=== PATIENT | female | born 1945 | race Caucasian/White ===

== ENCOUNTER 2016-08-07 07:39 | Inpatient (IN) | payer OTHER ==
[2016-07-19 14:59] VITALS: BMI 23.0
--- NOTE | 2016-07-19 15:42 | PAT Medication Instructions ---
Service Date Jul 19, 2016. Current Home Medication List Amlodipine (Norvasc), 7.5 MG PO QAM Ascorbic Acid (Vitamin C), 500 MG PO QPM B-Complex Vitamins (Vitamin B Complex), 1 TAB PO QAM Doxycycline Monohydrate (Monodox), 100 MG PO QAM Levothyroxine Sodium (Synthroid), 25 MCG PO QAM Lorazepam (Lorazepam), 1 MG PO QID PRN for Anxiety Multiple Vitamins W/ Minerals (Hair/Skin/Nails/Biotin), 2 TAB PO QPM Naproxen (Naprosyn), 500 MG PO BID Pantoprazole (Pantoprazole Sodium), 40 MG PO QAM Pediatric Multiple Vitamin W/ (Gummi Bear Multivitamin/M), 2 TABS PO QPM Vortioxetine HBr (Trintellix), 5 MG PO QAM [Vitamin D], 2 TAB PO QPM Medication Instructions For Your Scheduled Surgery - Check with surgeon for instructions: Naproxen (Naprosyn), 500 MG PO BID - Hold the following medications the morning of surgery: B-Complex Vitamins (Vitamin B Complex), 1 TAB PO QAM - Take the following medications the morning of surgery with a sip of water: Pantoprazole (Pantoprazole Sodium), 40 MG PO QAM Lorazepam (Lorazepam), 1 MG PO QID PRN for Anxiety Levothyroxine Sodium (Synthroid), 25 MCG PO QAM Amlodipine (Norvasc), 7.5 MG PO QAM Vortioxetine HBr (Trintellix), 5 MG PO QAM Doxycycline Monohydrate (Monodox), 100 MG PO QAM - Take the following medications as scheduled the night before surgery: [Vitamin D], 2 TAB PO QPM Pediatric Multiple Vitamin W/ (Gummi Bear Multivitamin/M), 2 TABS PO QPM Multiple Vitamins W/ Minerals (Hair/Skin/Nails/Biotin), 2 TAB PO QPM Lorazepam (Lorazepam), 1 MG PO QID PRN for Anxiety Ascorbic Acid (Vitamin C), 500 MG PO QPM If you have any questions please call us at [phone] (Ally Morales PA-C) or [phone] or [phone]
[2016-07-19 16:07] LABS: BASO % 0.2 %; BASO ABS # 0.01 K/uL (0-0.2); COMPLETE YES; EOS % 2.7 %; HEMATOCRIT 44.5 % (37-47); LYMPH % 37.9 %; MEAN CELL VOLUME 83.6 fL (80-100); MEAN CORPUSCULAR HEMOGLOBIN 28.4 pg (25-34); MEAN CORPUSCULAR HGB CONC 33.9 g/dl (32-36); MEAN PLATELET VOLUME 9.4 fL (7.4-10.4); MONO % 5.7 %; NEUT % 53.5 %; PLATELET COUNT 244 K/uL (130-400); RED BLOOD COUNT 5.32 M/uL (4.2-5.4); WHITE BLOOD COUNT 4.75 K/uL (4.8-10.8)
[2016-07-19 16:12] LABS: URINE APPEARANCE CLEAR (CLEAR); URINE BILIRUBIN NEG (NEG); URINE COLOR YELLOW; URINE EPITHELIAL CELL AUTO 0-5 /lpf (0-5); URINE NITRITE NEG (NEG); URINE PH 6.5 (4.5-7.5); URINE SPECIFIC GRAVITY 1.011 (1.000-1.030); UROBILINOGEN NEG (NEG); ZZUR CULT IF INDIC CLEAN CATCH NO
[2016-07-19 16:14] LABS: PROTHROMBIN TIME (PATIENT) 10.4 SECONDS (9.0-12.0)
[2016-07-19 16:21] LABS: MANUAL MICROSCOPIC REQUIRED? NO; REVIEW REQ? NO
[2016-07-19 16:25] LABS: BUN/CREATININE RATIO 27.6 (10-20); CREATININE 0.67 mg/dl (0.60-1.20); POTASSIUM 3.4 mmol/L (3.5-5.1)
[2016-07-20 06:06] LABS: ESTIMATED AVERAGE GLUCOSE 105 mg/dl; HA1C FLAG Normal (Normal)
--- NOTE | 2016-08-06 21:27 | HISTORY & PHYSICAL EXAMINATION ---
DATE OF ADMISSION: 08/07/2016 CHIEF COMPLAINT: Chronic left shoulder pain. HISTORY OF PRESENT ILLNESS: This is a 71-year-old female patient of Dr. Carrillo, complaining of chronic left shoulder pain longstanding, now progressively getting worse. The patient has been diagnosed with end-stage osteoarthritis and she has failed conservative treatment. The patient wishes to proceed with an elective left total shoulder arthroplasty. PAST MEDICAL HISTORY: Hypertension, irregular heartbeat, anxiety, Meniere disease, hypothyroidism, abnormal bleeding or bruising, osteoarthritis, neck problems, acid reflux, obesity. 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 SOCIAL HISTORY: Nonsmoker, nondrinker. PAST SURGICAL HISTORY: Appendectomy, tonsillectomy, D\T\C x4, hernia repair, shunt in her left ear, uterine ablation, left hand mass excision. FAMILY HISTORY: Noncontributory. REVIEW OF SYSTEMS: The patient complains of chronic left shoulder pain. Otherwise, denies any shortness of breath, chest pain, nausea, vomiting or any other joint complaints. MEDICATIONS: Include Synthroid 0.25 mg daily, Norvasc 2.5 mg 3 daily, Protonix 40 mg daily, lorazepam q.i.d. p.r.n., a multivitamin daily, calcium daily, vitamin C daily, Naprosyn as needed, B complex daily, doxycycline 100 mg q.a.m. ALLERGIES: INCLUDE SULFA, PENICILLIN, PROCARDIA, INHALED ANESTHESIA INCLUDING ETHRANE AND CLARITHROMYCIN. PHYSICAL EXAMINATION: GENERAL: Well-developed, well-nourished 71-year-old female in no acute distress. She is alert and oriented x3 and pleasant. HEENT: Normocephalic, atraumatic. Extraocular motions are intact. Pupils are equal and reactive to light. HEART: Regular rate and rhythm, no murmurs appreciated. LUNGS: Clear. ABDOMEN: Soft, nontender, bowel sounds present. EXTREMITIES: Left shoulder reveals full range of motion with pain. She has crepitation with passive range of motion. She has 4/5 strength globally. NEUROLOGIC: Neurovascularly, she is intact in her left upper extremity. DIAGNOSES: Left shoulder end-stage osteoarthritis with a history of hypertension, irregular heartbeat, anxiety, Meniere disease, hypothyroidism, abnormal bleeding or bruising, osteoarthritis, neck problems, acid reflux, obesity, kidney stones and jaundice secondary to Ethrane anesthesia. PLAN: The patient was advised of her diagnosis. Indications, risks, benefits, and postop course have all been reviewed. The patient wishes to proceed with a left total shoulder arthroplasty with possible rotator cuff repair. Necessary consent forms, preoperative testing and clearances will be obtained.
[~2016-08-07] VITALS: Ht 160 cm; Wt 61.2 kg
[2016-08-07] VITALS (8 sets, daily range): BP systolic 104–146; BP diastolic 65–80; PULSE 54–65; TEMP 36.1–36.7; O2SAT 96–100; Ht 160 cm; Wt 61.2 kg
[2016-08-07] MEDS: TRANEXAMIC ACID INJ 1,000 MG in SODIUM CHLORIDE 0.9% 100ML 100 ML IV SCH ×2 (06:30→09:44)
[~2016-08-07 07:39] MED LIST: ACETAMINOPHEN 500 MG TAB PO SCH; AMLO2.5T PO; ASCO500C5 PO; ATV1HP PO; B-COTAB18 PO; DEXAMETHASONE 4 MG TAB PO SCH; DOXY100C76 PO; FAMOTIDINE 20 MG TAB PO SCH; GABAPENTIN 300 MG CAP PO SCH; LACTATED RINGER'S 1000ML 1,000 ML IV SCH; LACTATED RINGER'S 1000ML IV SCH; LEVO25TA PO; LIDOCAINE/EPINEPHRINE 2% 1:200,000 20 ML SDV ONE; METOCLOPRAMIDE HCL 10 MG TAB PO SCH; MULT-859 PO; NAPR-1169 PO; PEDICHW34 PO; PRT40 PO; ROPIVACAINE 0.5% 5 MG/ML 30 ML VIAL ONE; VANCOMYCIN INJ 900 MG in SODIUM CHLORIDE 0.9% 250ML 250 ML IV SCH; VITAMIN D PO; VORT1TAB PO
[2016-08-07] MEDS ORDERED: ROCURONIUM BROMIDE 10 MG/ML 5 ML VIAL ONE (07:48)
[2016-08-07] MEDS ORDERED: GLYCOPYRROLATE INJ 0.2 MG/ML VIAL ONE (07:48)
[2016-08-07] MEDS ORDERED: PROPOFOL IV EMULSION 10 MG/ML 20 ML VIAL IV ONE (07:48)
[2016-08-07] MEDS ORDERED: FENTANYL CITRATE INJ 50 MCG/1 ML 2 ML VIAL ONE (07:48)
[2016-08-07] MEDS ORDERED: MIDAZOLAM HCL 1 MG/ML 2ML VIAL ONE ×2 (07:48→09:46)
[2016-08-07] MEDS ORDERED: LIDOCAINE HCL 2% 2 ML VIAL (20MG/ML) ONE ×2 (07:48→09:46)
[2016-08-07] MEDS ORDERED: NEOSTIGMINE METHYLSULFATE 5 MG/5 ML SYR ONE (07:48)
[2016-08-07] MEDS ORDERED: ONDANSETRON INJ 2 MG/ML 2 ML VIAL ONE ×2 (07:48→10:48)
--- NOTE | 2016-08-07 08:44 | History & Physical Bridge Note ---
H&P Re-Evaluation Bridge Note: I have examined the patient, reviewed the History & Physical and in the interval since the performance of the History & Physical I have noted the following changes of clinical significance: No changes noted
[2016-08-07] MEDS ORDERED: BACITRACIN 50000 UNIT VIAL ONE (09:27)
[2016-08-07] MEDS ORDERED: EpHEDrine SULFATE INJ 50 MG/ML AMP IV PRN (10:30)
[2016-08-07] MEDS ORDERED: LABETALOL HCL IV 5 MG/ML 20ML IV PRN (10:30)
[2016-08-07] MEDS ORDERED: MEPERIDINE HCL 25 MG/ML CARP IV PRN (10:30)
[2016-08-07] MEDS ORDERED: ATROPINE SULFATE 0.1 MG/ML 5ML SYR IV PRN (10:30)
[2016-08-07] MEDS ORDERED: ONDANSETRON INJ 2 MG/ML 2 ML VIAL IV PRN ×2 (10:30→12:30)
[2016-08-07] MEDS ORDERED: HYDROmorphone INJ 1 MG/ML SYR IV PRN (10:30)
[2016-08-07] MEDS ORDERED: EpHEDrine SULFATE 50MG/5ML SYR ONE ×2 (10:44→11:34)
[2016-08-07] MEDS ORDERED: PHENYLEPHRINE 100MCG/ML 5ML SYR ONE (10:44)
[2016-08-07] MEDS ORDERED: DEXAMETHASONE SOD INJ 4 MG/ML VIAL ONE (12:08)
[2016-08-07] MEDS ORDERED: ZOLPIDEM TARTRATE 5 MG TAB PO PRN (12:30)
[2016-08-07] MEDS ORDERED: SOD PHOSPHATE/SOD BIPHOSPHATE ENEMA 132 ML BTL PR PRN (12:30)
[2016-08-07] MEDS ORDERED: MAGNESIUM HYDROXIDE SUSP 30 ML UDC PO PRN (12:30)
[2016-08-07] MEDS ORDERED: NALOXONE HCL 0.4 MG/1 ML VIAL/CARP IV PRN (12:30)
[2016-08-07] MEDS ORDERED: METOCLOPRAMIDE HCL INJ 5 MG/ML 2 ML VIAL IV PRN (12:30)
[2016-08-07] MEDS ORDERED: BISACODYL 10 MG SUPP PR PRN (12:30)
[2016-08-07] MEDS ORDERED: LABETALOL HCL IV 5 MG/ML 20ML IV ONE (12:31)
--- NOTE | 2016-08-07 12:50 | [facility] Operative Report ---
Operative Report Operative Date Aug 07, 2016. Pre-Operative Diagnosis Left Shoulder End Stage Osteoarthritis,possible small rotator cuff tear Post-Operative Diagnosis same,biceps tenosynovitis chronic,intact rotator cuff Procedure(s) Performed left shoulder total shoulder arthroplasty and biceps tenodesis Surgeon Dr. Gallegos [facility] Social Worker Surgeon(s) Sawyer Escalona PA-C Estimated Blood Loss 50 ML Findings as above Specimens A. Left humeral head Drains 2 hemovac Anesthesia general and regional Complication(s) None Disposition Recovery Room / PACU Indications end stage djd I attest to the content of the Intraoperative Record and any orders documented therein. Any exceptions are noted below.
[2016-08-07] MEDS: FENTANYL CITRATE INJ 50 MCG/1 ML 2 ML VIAL IV PRN ×4 (12:58→13:13)
[2016-08-07] MEDS ORDERED: MoRPHine SULFATE 4 MG/ML 1 ML CARP\\VIAL IV PRN (13:30)
--- NOTE | 2016-08-07 13:38 | Anesthesiology Progress Note ---
Anesthesia Post Op Note Date & Time Aug 07, 2016 at 13:38 Vital Signs Pain Intensity: 4 Vital Signs Past 12 Hours Date Time Temp Pulse Resp B/P Pulse Ox O2 Delivery O2 Flow Rate FiO2 08/07/16 13:35 36.2 60 16 132/78 99 Nasal Cannula 2 08/07/16 13:25 36.2 61 16 133/75 99 Nasal Cannula 2 08/07/16 13:15 55 16 138/78 99 Nasal Cannula 2 08/07/16 13:05 64 16 148/84 99 Nasal Cannula 2 08/07/16 12:55 65 16 155/93 97 Mask 10 08/07/16 12:45 64 16 127/77 97 Mask 10 08/07/16 12:37 36.4 79 16 142/82 100 Mask 10 08/07/16 08:14 36.7 63 20 146/80 98 Room Air Notes Mental Status: alert / awake / arousable, participated in evaluation Pt Amnestic to Procedure: Yes Nausea / Vomiting: adequately controlled Pain: adequately controlled Airway Patency, RR, SpO2: stable & adequate BP & HR: stable & adequate Hydration State: stable & adequate Anesthetic Complications: no major complications apparent
--- NOTE | 2016-08-07 13:39 | DIAGNOSTIC IMAGING REPORT ---
LEFT SHOULDER MIN 2 VIEWS ROUTINE CLINICAL HISTORY: Post shoulder surgery postoperative evaluation COMPARISON: None. DISCUSSION: Total left shoulder arthroplasty. Good contact between prosthetic and underlying bone. Surgical drains are in position. There is no evidence for soft tissue swelling. IMPRESSION: Anatomic alignment status post left shoulder replacement Electronically signed by: Sawyer Duarte M.D. 08/07/2016 1:38 PM Dictated Date/Time: 08/07/2016 1:38 PM
[2016-08-07] MEDS: D5W AND 1/2NSS + 20MEQ KCL 1,000 ML IV SCH (16:46)
--- NOTE | 2016-08-07 17:26 | Medical Consult ---
Consultation Date of Consultation: Aug 07, 2016. Attending Physician: Brandin Gallegos M.D. Reason for Consultation: Medical management History of Present Illness This is a 71 y/o female with a history of HTN, hypothyroidism, anxiety, and GERD who presents s/p left total shoulder arthroplasty with Dr. Gallegos on for medical management. The patient reports feeling well postoperatively. She states that she has some numbness and tingling in her left arm and fingers but that sensation is starting to return. She also states that she had some mild nausea immediately after surgery; however, this has improved and she is now starting to feel hungry. The patient has not yet eaten, passed gas or had a bowel movement. Rosa catheter is in place draining clear urine. The patient denies fevers, chills, sweats, chest pain, palpitations, claudication, cough, wheezing, shortness of breath, vomiting, abdominal pain, dysuria, hematuria, urinary retention, paralysis, and weakness. Family History Myocardial infarction Stroke Social History Smoking Status: Never Smoker Smokeless Tobacco Use: No Alcohol Use: none Drug Use: none Marital Status: Housing Status: lives alone Occupation Status: retired Allergies Coded Allergies: Iodinated Diagnostic Agents (Verified Allergy, Intermediate, hives per PCP records, 08/07/16) Penicillins (Verified Allergy, Intermediate, HIVES, 08/07/16) Sulfamethoxazole w/Trimethoprim (Verified Allergy, Intermediate, HIVES, ) Enflurane (Verified Allergy, Unknown, CHEMICAL HEPATITIS WITH ANESTHESIA, 08/07/16) RXN WITH D+C PROCEDURE () Levofloxacin (Verified Allergy, Unknown, per PCP note , 08/07/16) Nifedipine (Verified Adverse Reaction, Intermediate, ARRYTHMIA, 08/07/16) Current Inpatient Medications Current Inpatient Medications Medications (Trade) Dose Ordered Sig/Grayson Route Start Time Stop Time Status Last Admin Dose Admin Acetaminophen (Tylenol Tab) 1,000 mg PREOP PO 08/07/16 06:00 08/07/16 18:00 08/07/16 08:54 1,000 MG Dexamethasone (Decadron Tab) 8 mg PREOP PO 08/07/16 06:00 08/07/16 18:00 08/07/16 08:52 8 MG Famotidine (Pepcid Tab) 20 mg PREOP PO 08/07/16 06:00 08/07/16 18:00 08/07/16 08:53 20 MG Gabapentin (Neurontin Cap) 300 mg PREOP PO 08/07/16 06:00 08/07/16 18:00 08/07/16 08:53 300 MG Metoclopramide HCl 10 mg 10 mg PREOP PO 08/07/16 06:00 08/07/16 18:00 08/07/16 08:53 10 MG Tranexamic Acid/ Sodium Chloride (Cyklokapron Inj/ Nss 100ml) 110 ml @ 660 mls/hr TODAY@06,0630 IV 08/07/16 06:00 08/07/16 18:00 08/07/16 09:44 660 MLS/HR Amlodipine Besylate (Norvasc Tab) 7.5 mg QAM PO 08/08/16 09:00 09/07/16 08:59 Levothyroxine Sodium (Synthroid Tab) 25 mcg DAILYBB PO 08/08/16 06:00 09/07/16 05:59 Lorazepam (Ativan Tab) 1 mg QID PRN PO 08/07/16 12:30 09/06/16 12:29 Multivitamins/ Minerals (Multivitamin W/ Minerals Tab) 2 tab QPM PO 08/07/16 21:00 09/06/16 20:59 Pantoprazole Sodium (Protonix Tab) 40 mg QAM PO 08/08/16 09:00 09/07/16 08:59 Ascorbic Acid (Vitamin C Tab) 500 mg QPM PO 08/07/16 21:00 09/06/16 20:59 Vitamin B Complex (Vitamin B Complex) 1 tab QAM PO 08/08/16 09:00 09/07/16 08:59 Multivitamins (Flintstones Complete Tab) 2 tab QPM PO 08/07/16 21:00 09/06/16 20:59 Miscellaneous Information (Order Awaiting Action) 1 ea QS N/A 08/07/16 16:00 09/06/16 15:59 Miscellaneous Information (Order Awaiting Action) 1 ea QS N/A 08/07/16 16:00 09/06/16 15:59 Diphenhydramine HCl (Benadryl Cap) 25 mg Q8 PRN PO 08/07/16 12:30 09/06/16 12:29 Zolpidem Tartrate (Ambien Tab) 5 mg HSZ PRN PO 08/07/16 12:30 09/06/16 12:29 Metoclopramide HCl (Reglan Inj) 10 mg Q6H PRN IV 08/07/16 12:30 09/06/16 12:29 Ondansetron HCl 4 mg 4 mg Q6H PRN IV 08/07/16 12:30 09/06/16 12:29 Potassium Chloride/Dextrose/ Sod Cl 1,000 ml @ 100 mls/hr Q10H IV 08/07/16 16:00 08/08/16 15:59 08/07/16 16:46 100 MLS/HR Vancomycin HCl/ Sodium Chloride (Vancomycin Inj/ Nss 250ml) 268 ml @ 125 mls/hr Q12H IV 08/07/16 21:00 08/07/16 23:09 Oxycodone HCl (Roxicodone Immediate Rel Tab) `1-2 TABS FOR PAIN `1 TAB... Q4H PRN PO 08/07/16 12:30 08/21/16 12:29 Oxycodone HCl (Oxycontin Tab) 10 mg Q12 PO 08/07/16 21:00 08/21/16 20:59 Acetaminophen (Tylenol Tab) 1,000 mg Q8 PO 08/07/16 22:00 09/06/16 21:59 Morphine Sulfate (MoRPHine SULFATE INJ) 2 mg Q2H PRN IV 08/07/16 12:30 08/21/16 12:29 Naloxone HCl (Narcan Inj) 0.1 mg Q2M PRN IV 08/07/16 12:30 09/06/16 12:29 Magnesium Hydroxide (Milk Of Magnesia Susp) 30 ml Q6H PRN PO 08/07/16 12:30 09/06/16 12:29 Bisacodyl (Dulcolax Supp) 10 mg DAILY PRN UT 08/07/16 12:30 09/06/16 12:29 Sodium Biphosphate/ Sodium Phosphate (Fleet Enema) 132 ml DAILY PRN UT 08/07/16 12:30 09/06/16 12:29 Morphine Sulfate (MoRPHine SULFATE INJ) 4 mg Q2H PRN IV 08/07/16 13:30 08/21/16 13:29 Review of Systems See HPI for pertinent positives and negatives. All other systems reviewed and negative. Physical Exam Date Time Temp Pulse Resp B/P Pulse Ox O2 Delivery O2 Flow Rate FiO2 08/07/16 16:33 36.1 58 17 114/70 97 Nasal Cannula 3.0 08/07/16 15:33 Nasal Cannula 2.0 08/07/16 15:18 36.2 64 17 104/67 98 Nasal Cannula 3.0 08/07/16 14:48 Nasal Cannula 08/07/16 14:30 65 18 119/68 97 Nasal Cannula 2.0 08/07/16 14:00 36.3 54 16 120/75 08/07/16 13:35 36.2 60 16 132/78 99 Nasal Cannula 2 08/07/16 13:25 36.2 61 16 133/75 99 Nasal Cannula 2 08/07/16 13:15 55 16 138/78 99 Nasal Cannula 2 08/07/16 13:05 64 16 148/84 99 Nasal Cannula 2 08/07/16 12:55 65 16 155/93 97 Mask 10 08/07/16 12:45 64 16 127/77 97 Mask 10 08/07/16 12:37 36.4 79 16 142/82 100 Mask 10 08/07/16 08:14 36.7 63 20 146/80 98 Room Air General Appearance: WD/WN, no apparent distress Head: normocephalic, atraumatic Eyes: normal inspection, PERRL, EOMI ENT: normal ENT inspection, hearing grossly normal, pharynx normal Neck: supple, no JVD, trachea midline Respiratory/Chest: lungs clear, normal breath sounds, no respiratory distress Cardiovascular: regular rate, rhythm, no gallop, no murmur Abdomen/GI: normal bowel sounds, non tender, soft Extremities/Musculoskelatal: normal inspection, no calf tenderness, no pedal edema Neurologic/Psych: alert, normal mood/affect, oriented x 3 Skin: normal color, warm/dry, no rash Assessment & Plan 71 y/o female with a history of HTN, hypothyroidism, anxiety, and GERD who presents s/p left total shoulder arthroplasty with Dr. Gallegos on 08/07 for medical management. -Pain management, DVT prophylaxis, and PT/OT as per primary team HTN--stable -Continue Norvasc 7.5 mg PO qd Hypothyroidism -Continue Synthroid 25 g PO qd Anxiety -Continue Ativan 1 mg PO QID prn anxiety GERD -Continue Protonix 40 mg PO qd Thank you for this consultation. We will continue to follow. This chart was completed in part utilizing [email or web address] Speech Voice Recognition software. Attempts were made to minimize the grammatical errors, random word insertions, pronoun errors and incomplete sentences. Any formal questions or concerns about the content, text or information contained within the body of this dictation should be directly addressed to the provider for clarification. I agree with PA assessment and plan s/p left shoulder arthoplasty VSS HTN stable Cont ativan per anxiety No further recs
[2016-08-07 17:48] LABS: BASO % 0.1 %; BASO ABS # 0.01 K/uL (0-0.2); COMPLETE YES; HEMATOCRIT 40.9 % (37-47); IG% 0.2 %; LYMPH % 6.2 %; LYMPH ABS # 0.63 K/uL (1.2-3.4); MEAN CORPUSCULAR HEMOGLOBIN 28.7 pg (25-34); MEAN CORPUSCULAR HGB CONC 34.2 g/dl (32-36); MEAN PLATELET VOLUME 8.9 fL (7.4-10.4); MONO % 0.5 %; PLATELET COUNT 206 K/uL (130-400); RED BLOOD COUNT 4.87 M/uL (4.2-5.4); WHITE BLOOD COUNT 10.22 K/uL (4.8-10.8)
[2016-08-07 18:04] LABS: BUN/CREATININE RATIO 15.2 (10-20); CALCIUM 8.2 mg/dl (8.5-10.1); CREATININE 0.84 mg/dl (0.60-1.20); POTASSIUM 3.3 mmol/L (3.5-5.1)
[2016-08-07] MEDS: LORAZEPAM 1 MG TAB PO PRN (18:35)
[2016-08-07] MEDS: CEROVITE ADV FORMULA TAB PO SCH (21:00)
[2016-08-07] MEDS: ASCORBIC ACID 500 MG TAB PO SCH (21:00)
[2016-08-07] MEDS ORDERED: VANCOMYCIN INJ 900 MG in SODIUM CHLORIDE 0.9% 250ML 250 ML IV SCH (21:00)
[2016-08-07] MEDS: FLINTSTONES COMPLETE CHEWABLE TAB PO SCH (21:00)
[2016-08-07] MEDS: OXYCODONE HCL 10 MG TABCR (OXYCONTIN) PO SCH (21:04)
[2016-08-07] MEDS: ACETAMINOPHEN 500 MG TAB PO SCH (21:05)
[2016-08-07] MEDS: OXYCODONE HCL IR 5 MG TAB (IMMEDIATE RELEASE) PO PRN (23:06)
[2016-08-08] VITALS (7 sets, daily range): BP systolic 110–134; BP diastolic 64–80; PULSE 48–60; TEMP 36.4–36.9; O2SAT 94–98
--- NOTE | 2016-08-08 00:33 | OPERATIVE REPORT ---
DATE OF OPERATION: 08/07/2016 INDICATION FOR PROCEDURE: A 71-year-old female who presents with chronic progressive pain due to osteoarthritis in her left shoulder. She was worked up with x-rays and MRI. X-rays demonstrate she has concentric wear of the glenoid. She is completely bone on bone with no articular surface. She has a type 1 acromion. The MRI demonstrates that she has some intratendinous tearing which is small, possible partial tearing or tendinopathy of the supraspinatus, but not a full thickness tear and a small area involved and chronic synovitis in the glenohumeral joint with joint effusion and a loose body. She has chronic biceps tenosynovitis. PREOPERATIVE DIAGNOSIS: End-stage osteoarthritis, left shoulder with rotator cuff tendinopathy, partial tear rotator cuff, chronic biceps tenosynovitis. POSTOPERATIVE DIAGNOSIS: Same; however, no rotator cuff tear was identified. Rotator cuff was intact. PROCEDURE: Left total shoulder arthroplasty with biceps tenodesis. SURGEON: Brandin Gallegos MD DIVE SUPERINTENDENT: Sawyer Escalona PA-C ANESTHESIA: Regional block and general. OPERATIVE PROCEDURE: The patient taken to the operating room, anesthetized with regional block and general anesthetic. She was positioned on the operating room table on a 30 degree beach chair position with a towel roll on the medial border of scapula. She was translated to left side of the bed, so her shoulder could be manipulated off the bed as necessary. Her head was placed on a foam headrest. She had protective eyewear placed. She had TEDs, SCDs and Rosa catheter placed. Her shoulder exam demonstrated that she had mild limitation of external rotation to about 40 degrees and her abduction was to 90 and her forward elevation was to 150 and she had marked [id number] crepitation. Her left shoulder was sterilely prepped and draped with ChloraPrep. An anterior deltopectoral approach was performed. A longitudinal incision was made in the deltopectoral interval. Subcutaneous bleeders were cauterized as necessary. The subcutaneous tissues were dissected down to the fascia, reflected off the fascia and the cephalic vein was dissected out and retracted laterally with the deltoid. Deltopectoral interval was developed and dissected down to the clavipectoral fascia which was divided at the lateral margin of the strap muscles and conjoined tendon and extended up to the CA ligament which was preserved. There was some minor bursitis which was resected. Rotator cuff was inspected and the rotator cuff was completely intact, subscapularis, supraspinatus, infraspinatus, teres minor. She had thickening in the bicipital groove area where she had chronic tenosynovitis of the biceps. The falciform ligament and upper 1 cm of the pectoralis was released for inferior exposure. The biceps tendon was tenodesed to the pectoralis tendon with [id number] #2 FiberWire. The proximal bicep was resected along with the tenosynovium that was chronically inflamed. The circumflex vessels were identified, dissected out and tied off with silk ties and divided laterally. The rotator interval was opened up and the joint effusion was evacuated. The rotator interval was divided laterally between the supraspinatus and subscap tendons. The muscle fibers of the inferior subscapularis were split at the level of the circumflex vessels and small cuff of subscapularis muscle fibers were kept inferiorly to protect the axillary nerve inferiorly. A Kitner elevator was used to reflect these fibers off the capsule and a blunt Hohmann retractor was placed between the axillary nerve and the capsule. The subscapularis tendon was then taken down with a transtendinous incision leaving a cuff of tissue on the lesser tuberosity for repair. A #1 Vicryl traction suture was placed into the free ends of the subscapularis tendon. The humerus was gradually externally rotated and extended to dislocate the humerus. The humeral head was completely devoid of any articular cartilage. There was a large inferior osteophyte. There were some smaller lateral osteophytes. The osteophytes were resected with an artist chisel and a rongeur. Then the axillary nerve was definitely identified and protected with the blunt Hohmann inferiorly. A Fukuda retractor was placed into the joint and the capsule was released with Fisher scissors down to the glenoid off the anterior glenoid and rotator was released down to the glenoid, so we had a 360 degree release of the subscapularis. Anterior inferior and posterior inferior capsular release with electrocautery on bone was performed with the axillary nerve protected inferiorly. A Starr elevator was also used to free up the capsule. After releases were completed and the humeral head was re-exposed with extension and external rotation, an oscillating saw was used to make an anatomic femoral head cut. Head was measured for a 46 mm diameter component. I used the Tornier Aequalis Ascend Flex total shoulder arthroplasty system with an Affiniti Cortiloc glenoid component. The humerus was then retracted posterior to the glenoid. We had full exposure of the glenoid with glenoid retractors. Central drill hole was made into the glenoid. The size 44 glenoid was chosen as the appropriate size. The reamer was used and some acetabular cysts were curetted out. Then the central drill hole was widened. The peg guide for the peripheral pegs was inserted and the drill was used to make the peripheral peg holes. The glenoid was copiously irrigated and free of all debris. We did remove the loose body that was noted on preoperative x-rays from the joint. At this point, with the glenoid fully exposed, we irrigated copiously with antibiotic solution with bacitracin and dried the glenoid and then packed the drill holes with epinephrine soaked tampons. Then the Palacos G cement was vacuum mixed and then the glenoid was cemented with the central peg being pressfit and the peripheral peg hole was cemented and back of the glenoid was cemented. It was impacted in position with a tight pressfit and held until the cement cured. All excess cement was cleared. After further irrigation, the humerus was exposed with extension and external rotation. This centering awl was used followed by broaches up to a size 3, which had appropriate fit and fill. I used a standard offset humeral head 46 mm diameter and 17 mm height. The trial reduction demonstrated good range of motion, good stability, and appropriate soft tissue tension. The trial was removed. Three drill holes were made into the hard bone in the bicipital groove, so 3 transosseous sutures could be placed around the lesser tuberosity to repair the subscapularis, #5 FiberWire sutures were placed. After further irrigation, the final component was assembled which was the 3A standard Ascend Flex stem to the 46 x 17 mm low offset head. After the final component was assembled, it was inserted into the humerus with a tight pressfit. The humeral component was then reduced to the glenoid. After further irrigation with antibiotic solution with bacitracin, the subscapularis was repaired with the #5 FiberWire sutures using Ez-Erick suture technique. Then the lateral soft tissue repair was performed with [id number] #2 FiberWire and rotator was closed with interrupted #2 FiberWire. The pectoralis was repaired with interrupted #2 FiberWire placing sutures through the biceps as well to reinforce the tenodesis. Postop, range of motion at this point was 120 degrees without any tension on the repair and forward flexion, abduction at 90, external rotation to 30. The wound was again irrigated. Two drains were brought out laterally. Then the deltopectoral interval was closed with [id number] #1 Vicryl sutures. The subcutaneous tissues were closed with interrupted 2-0 Vicryl. Skin was closed with kyle. Sterile dressings were applied and the patient tolerated the procedure well. ALEX Timmons was my pharmacist assistant. He functioned as pharmacist assistant for the entire procedure. He assisted in patient positioning, prepping, draping, arm positioning, instrument management, soft tissue retraction, suture management as needed during the procedure and he performed the final subcutaneous skin closure and will participate in the postoperative care of the patient. I attest to the content of the Intraoperative Record and any orders documented therein. Any exceptions are noted below. LAUREL
[2016-08-08] MEDS: D5W AND 1/2NSS + 20MEQ KCL 1,000 ML IV SCH (01:55)
[2016-08-08] MEDS: MoRPHine SULFATE 2 MG/ML CARP IV PRN ×5 (01:55→23:55)
[2016-08-08] MEDS: OXYCODONE HCL IR 5 MG TAB (IMMEDIATE RELEASE) PO PRN ×4 (03:08→20:04)
[2016-08-08] MEDS: LORAZEPAM 1 MG TAB PO PRN ×2 (03:08→09:12)
[2016-08-08] MEDS: LEVOTHYROXINE 25 MCG TAB PO SCH (05:48)
[2016-08-08] MEDS: ACETAMINOPHEN 500 MG TAB PO SCH ×3 (05:48→22:07)
[2016-08-08 07:28] LABS: HEMATOCRIT 40.2 % (37-47); MEAN CELL VOLUME 83.8 fL (80-100); MEAN CORPUSCULAR HEMOGLOBIN 28.1 pg (25-34); MEAN CORPUSCULAR HGB CONC 33.6 g/dl (32-36); MEAN PLATELET VOLUME 9.5 fL (7.4-10.4); PLATELET COUNT 248 K/uL (130-400); WHITE BLOOD COUNT 14.16 K/uL (4.8-10.8)
[2016-08-08 08:10] LABS: BUN/CREATININE RATIO 17.9 (10-20); CALCIUM 8.4 mg/dl (8.5-10.1); CREATININE 0.71 mg/dl (0.60-1.20); POTASSIUM 4.1 mmol/L (3.5-5.1)
--- NOTE | 2016-08-08 08:24 | Orthopedic Progress Note ---
Orthopedic Progress Note Date of Service Aug 08, 2016. Subjective Post OP Day: 1 Reports: feeling well, Denies: SOB, calf pain, chest pain, light headedness, nausea / vomiting Additional Notes: Main issue is pain, she was confused on the pain med schedules and states she refused pain meds because she was unsure if she could take them. Objective N/V intact, capillary refill less than 2 sec., dressing C/D/I, A&O x3 sling in tact, fingers mobile Date Time Temp Pulse Resp B/P Pulse Ox O2 Delivery O2 Flow Rate FiO2 08/08/16 07:59 36.4 48 16 129/80 98 Room Air 08/08/16 03:14 36.8 53 16 110/64 97 Nasal Cannula 2.0 08/07/16 22:45 36.4 65 18 110/71 97 Nasal Cannula 2.0 08/07/16 20:51 36.3 62 16 128/80 96 Nasal Cannula 3.0 08/07/16 20:45 Nasal Cannula 2.0 08/07/16 17:00 36.4 59 18 114/65 100 Nasal Cannula 3.0 08/07/16 16:33 36.1 58 17 114/70 97 Nasal Cannula 3.0 08/07/16 15:33 Nasal Cannula 2.0 08/07/16 15:18 36.2 64 17 104/67 98 Nasal Cannula 3.0 08/07/16 14:48 Nasal Cannula 08/07/16 14:30 65 18 119/68 97 Nasal Cannula 2.0 08/07/16 14:00 36.3 54 16 120/75 08/07/16 13:35 36.2 60 16 132/78 99 Nasal Cannula 2 08/07/16 13:25 36.2 61 16 133/75 99 Nasal Cannula 2 08/07/16 13:15 55 16 138/78 99 Nasal Cannula 2 08/07/16 13:05 64 16 148/84 99 Nasal Cannula 2 08/07/16 12:55 65 16 155/93 97 Mask 10 08/07/16 12:45 64 16 127/77 97 Mask 10 08/07/16 12:37 36.4 79 16 142/82 100 Mask 10 Laboratory Results 24 Hours: Test 08/07/16 17:39 08/08/16 07:09 White Blood Count 10.22 K/uL Red Blood Count 4.87 M/uL Hemoglobin 14.0 g/dL 13.5 g/dL Hematocrit 40.9 % 40.2 % Mean Corpuscular Volume 84.0 fL Mean Corpuscular Hemoglobin 28.7 pg Mean Corpuscular Hemoglobin Concent 34.2 g/dl Platelet Count 206 K/uL Mean Platelet Volume 8.9 fL Neutrophils (%) (Auto) 93.0 % Lymphocytes (%) (Auto) 6.2 % Monocytes (%) (Auto) 0.5 % Eosinophils (%) (Auto) 0.0 % Basophils (%) (Auto) 0.1 % Neutrophils # (Auto) 9.51 K/uL Lymphocytes # (Auto) 0.63 K/uL Monocytes # (Auto) 0.05 K/uL Eosinophils # (Auto) 0.00 K/uL Basophils # (Auto) 0.01 K/uL Assessment & Plan Assessment: Left TSA, biceps tenodesis. Plan: PT/ OT D/C planning- [place] Appreciate medicine input. Inhouse Planning Pain Management: Oxycontin, Morphine, PO Tylenol, Oxy IR DVT Prophylaxis: TEDs, SCDs Discharge Planning Discharge Planning: custodial facility Pain Management: Oxycontin, PO Tylenol, Oxy IR Therapy: Physical Therapy, Occupational Therapy
[2016-08-08] MEDS ORDERED: MULTIVITAMIN TAB PO SCH (09:00)
[2016-08-08] MEDS ORDERED: PANTOprazole SOD 40 MG TAB PO SCH (09:00)
[2016-08-08] MEDS: VITAMIN B COMPLEX TAB PO SCH (09:00)
[2016-08-08] MEDS: PANTOprazole SOD 40 MG TAB PO SCH (09:05)
[2016-08-08] MEDS: OXYCODONE HCL 10 MG TABCR (OXYCONTIN) PO SCH ×2 (09:05→22:06)
[2016-08-08] MEDS: AMLODIPINE BESYLATE 5 MG TAB PO SCH (09:09)
--- NOTE | 2016-08-08 14:14 | Progress Note ---
Subjective Date of Service: Aug 08, 2016. Subjective Pt evaluation today including: conversation w/ patient, physical exam, lab review, conversation w/ cosmetic sales consultant, review of inpatient medication list Pain: severe left shoulder pain PO Intake: adequate patient very anxious, did not sleep, pain poorly controlled with just oral narcotics, feeling better with Morphine IV will adjust Ativan Review of Systems Musculoskeletal: + joint pain (left shoulder) Psychiatric: + anxiety, + insomnia All Other Systems: Reviewed and Negative Medications Current Inpatient Medications Medications (Trade) Dose Ordered Sig/[place] Route Start Time Stop Time Status Last Admin Dose Admin Amlodipine Besylate (Norvasc Tab) 7.5 mg QAM PO 08/08/16 09:00 09/07/16 08:59 08/08/16 09:09 7.5 MG Levothyroxine Sodium (Synthroid Tab) 25 mcg DAILYBB PO 08/08/16 06:00 09/07/16 05:59 08/08/16 05:48 25 MCG Multivitamins/ Minerals (Multivitamin W/ Minerals Tab) 2 tab QPM PO 08/07/16 21:00 09/06/16 20:59 Pantoprazole Sodium (Protonix Tab) 40 mg QAM PO 08/08/16 09:00 09/07/16 08:59 08/08/16 09:05 40 MG Ascorbic Acid (Vitamin C Tab) 500 mg QPM PO 08/07/16 21:00 09/06/16 20:59 Vitamin B Complex (Vitamin B Complex) 1 tab QAM PO 08/08/16 09:00 09/07/16 08:59 Multivitamins (Flintstones Complete Tab) 2 tab QPM PO 08/07/16 21:00 09/06/16 20:59 Miscellaneous Information (Order Awaiting Action) 1 ea QS N/A 08/07/16 16:00 09/06/16 15:59 Miscellaneous Information (Order Awaiting Action) 1 ea QS N/A 08/07/16 16:00 09/06/16 15:59 Diphenhydramine HCl (Benadryl Cap) 25 mg Q8 PRN PO 08/07/16 12:30 09/06/16 12:29 Zolpidem Tartrate (Ambien Tab) 5 mg HSZ PRN PO 08/07/16 12:30 09/06/16 12:29 Metoclopramide HCl (Reglan Inj) 10 mg Q6H PRN IV 08/07/16 12:30 09/06/16 12:29 Ondansetron HCl (Zofran Inj) 4 mg Q6H PRN IV 08/07/16 12:30 09/06/16 12:29 Oxycodone HCl (Roxicodone Immediate Rel Tab) `1-2 TABS FOR PAIN `1 TAB... Q4H PRN PO 08/07/16 12:30 08/21/16 12:29 08/08/16 12:13 10 MG Oxycodone HCl (Oxycontin Tab) 10 mg Q12 PO 08/07/16 21:00 08/21/16 20:59 08/08/16 09:05 10 MG Acetaminophen (Tylenol Tab) 1,000 mg Q8 PO 08/07/16 22:00 09/06/16 21:59 08/08/16 05:48 1,000 MG Morphine Sulfate (MoRPHine SULFATE INJ) 2 mg Q2H PRN IV 08/07/16 12:30 08/21/16 12:29 08/08/16 13:03 2 MG Naloxone HCl (Narcan Inj) 0.1 mg Q2M PRN IV 08/07/16 12:30 09/06/16 12:29 Magnesium Hydroxide (Milk Of Magnesia Susp) 30 ml Q6H PRN PO 08/07/16 12:30 09/06/16 12:29 Bisacodyl (Dulcolax Supp) 10 mg DAILY PRN SC 08/07/16 12:30 09/06/16 12:29 Sodium Biphosphate/ Sodium Phosphate (Fleet Enema) 132 ml DAILY PRN SC 08/07/16 12:30 09/06/16 12:29 Morphine Sulfate (MoRPHine SULFATE INJ) 4 mg Q2H PRN IV 08/07/16 13:30 08/21/16 13:29 Lorazepam (Ativan Tab) 1 mg BID@0800,1600 PO 08/08/16 16:00 09/07/16 15:59 Lorazepam (Ativan Tab) 1 mg HSZ PO 08/08/16 22:00 09/07/16 21:59 Lorazepam (Ativan Tab) 0.5 mg HSZ PRN PO 08/08/16 22:00 09/07/16 21:59 Objective Vital Signs Date Time Temp Pulse Resp B/P Pulse Ox O2 Delivery O2 Flow Rate FiO2 08/08/16 11:30 36.4 60 19 134/75 96 Room Air 08/08/16 09:07 56 111/72 08/08/16 07:59 36.4 48 16 129/80 98 Room Air 08/08/16 07:45 98 Room Air 08/08/16 03:14 36.8 53 16 110/64 97 Nasal Cannula 2.0 08/07/16 22:45 36.4 65 18 110/71 97 Nasal Cannula 2.0 08/07/16 20:51 36.3 62 16 128/80 96 Nasal Cannula 3.0 08/07/16 20:45 Nasal Cannula 2.0 08/07/16 17:00 36.4 59 18 114/65 100 Nasal Cannula 3.0 08/07/16 16:33 36.1 58 17 114/70 97 Nasal Cannula 3.0 08/07/16 15:33 Nasal Cannula 2.0 08/07/16 15:18 36.2 64 17 104/67 98 Nasal Cannula 3.0 08/07/16 14:48 Nasal Cannula 08/07/16 14:30 65 18 119/68 97 Nasal Cannula 2.0 Physical Exam General Appearance: WD/WN, no apparent distress Eyes: normal inspection, EOMI, sclerae normal ENT: normal ENT inspection, hearing grossly normal, pharynx normal Neck: supple, no adenopathy, no JVD, trachea midline Respiratory/Chest: chest non-tender, lungs clear, normal breath sounds, no respiratory distress, no accessory muscle use Cardiovascular: regular rate, rhythm, no edema, no gallop, no JVD, no murmur Abdomen: normal bowel sounds, non tender, soft, no organomegaly Extremities: no pedal edema, no calf tenderness, pelvis stable, + pertinent finding (left shoulder wrapped, immobilized, very tender) 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, no motor/sensory deficits, alert, oriented x 3, + pertinent finding (anxious) Skin: normal color, warm/dry, no rash Laboratory Results Last 24 Hours Test 08/07/16 17:39 08/08/16 07:09 08/08/16 13:45 White Blood Count 10.22 K/uL 14.16 K/uL Red Blood Count 4.87 M/uL 4.80 M/uL Hemoglobin 14.0 g/dL 13.5 g/dL Hematocrit 40.9 % 40.2 % Mean Corpuscular Volume 84.0 fL 83.8 fL Mean Corpuscular Hemoglobin 28.7 pg 28.1 pg Mean Corpuscular Hemoglobin Concent 34.2 g/dl 33.6 g/dl Platelet Count 206 K/uL 248 K/uL Mean Platelet Volume 8.9 fL 9.5 fL Neutrophils (%) (Auto) 93.0 % Lymphocytes (%) (Auto) 6.2 % Monocytes (%) (Auto) 0.5 % Eosinophils (%) (Auto) 0.0 % Basophils (%) (Auto) 0.1 % Neutrophils # (Auto) 9.51 K/uL Lymphocytes # (Auto) 0.63 K/uL Monocytes # (Auto) 0.05 K/uL Eosinophils # (Auto) 0.00 K/uL Basophils # (Auto) 0.01 K/uL RDW Standard Deviation 43.3 fL 44.0 fL RDW Coefficient of Variation 14.0 % 14.2 % Immature Granulocyte % (Auto) 0.2 % Immature Granulocyte # (Auto) 0.02 K/uL Sodium Level 142 mmol/L 140 mmol/L Potassium Level 3.3 mmol/L 4.1 mmol/L Chloride Level 106 mmol/L 106 mmol/L Carbon Dioxide Level 26 mmol/L 25 mmol/L Anion Gap 10.0 mmol/L 9.0 mmol/L Blood Urea Nitrogen 13 mg/dl 13 mg/dl Creatinine 0.84 mg/dl 0.71 mg/dl Est Creatinine Clear Calc Drug Dose 51.5 ml/min 61.0 ml/min Estimated GFR () 81.6 100.0 Estimated GFR (Non- 70.4 86.3 BUN/Creatinine Ratio 15.2 17.9 Random Glucose 171 mg/dl 185 mg/dl Calcium Level 8.2 mg/dl 8.4 mg/dl Assessment and Plan 71 y/o female with a history of HTN, hypothyroidism, anxiety, and GERD who presents s/p left total shoulder arthroplasty with Dr. Gallegos on 08/07 for medical management. POD #1, lots of pain today, management per primary team HTN--stable -Continue Norvasc 7.5 mg PO qd Hypothyroidism -Continue Synthroid 25 g PO qd Anxiety -changed to scheduled for 8am, 4pm, qHS which is how she typically takes it GERD -Continue Protonix 40 mg PO qd
[2016-08-08] MEDS: LORAZEPAM 1 MG TAB PO SCH (16:00)
[2016-08-08] MEDS: CEROVITE ADV FORMULA TAB PO SCH (21:00)
[2016-08-08] MEDS: ASCORBIC ACID 500 MG TAB PO SCH (21:00)
[2016-08-08] MEDS: FLINTSTONES COMPLETE CHEWABLE TAB PO SCH (21:00)
[2016-08-08] MEDS ORDERED: LORAZEPAM 1 MG TAB PO SCH (22:00)
[2016-08-08] MEDS ORDERED: LORAZEPAM 0.5 MG TAB PO PRN (22:00)
[2016-08-09] MEDS: OXYCODONE HCL IR 5 MG TAB (IMMEDIATE RELEASE) PO PRN ×2 (02:00→11:05)
[2016-08-09] MEDS: ACETAMINOPHEN 500 MG TAB PO SCH ×2 (05:15→14:00)
[2016-08-09] MEDS: LEVOTHYROXINE 25 MCG TAB PO SCH (05:16)
[2016-08-09 07:51] VITALS: BP 119/73; PULSE 58; TEMP 36.9; O2SAT 91
--- NOTE | 2016-08-09 08:05 | Orthopedic Progress Note ---
Orthopedic Progress Note Date of Service Aug 09, 2016. Subjective Post OP Day: 2 Reports: feeling well, pain controlled w PO medications, Denies: SOB, calf pain , chest pain, complaints, light headedness, nausea / vomiting Additional Notes: Pain much better today. Still a little "shaky" with ambulation. AM labs pending. Objective N/V intact, capillary refill less than 2 sec., incision C/D/I, A&O x3 Sling in tact. Fingers mobile. Date Time Temp Pulse Resp B/P Pulse Ox O2 Delivery O2 Flow Rate FiO2 08/09/16 07:51 36.9 58 16 119/73 91 Room Air 08/08/16 23:50 Room Air 08/08/16 23:04 36.9 56 16 124/70 94 Room Air 08/08/16 20:35 Room Air 08/08/16 15:55 36.7 52 16 122/74 95 Room Air 08/08/16 11:30 36.4 60 19 134/75 96 Room Air 08/08/16 09:07 56 111/72 Laboratory Results 24 Hours: Test 08/09/16 04:44 Assessment & Plan Assessment: POD #2, Left TSA, biceps tenodesis. Plan: PT/ OT D/C planning- [place] when bed avail Appreciate medicine input. Inhouse Planning Pain Management: Oxycontin, Morphine, PO Tylenol, Oxy IR DVT Prophylaxis: TEDs, SCDs Discharge Planning [facility] Pain Management: Oxycontin, PO Tylenol, Oxy IR Therapy: Physical Therapy, Occupational Therapy
--- NOTE | 2016-08-09 08:10 | Hospitalist Progress Note ---
Hospitalist Progress Note Date of Service Aug 09, 2016. Subjective Pt evaluation today including: conversation w/ patient, physical exam, chart review, lab review, review of studies, review of inpatient medication list Pain: Mild shoulder pain PO Intake: Good Voiding: no voiding problems The patient was seen and examined this morning. Patient reports feeling well, her pain is much improved in the shoulder compared to yesterday. The patient reports her anxiety is also underwent good control. The patient has been on many anxiolytics and antidepressants in the past. Most recently she was on Trintellix which she stopped taking 2 weeks ago. Patient reports that she was receiving assistance for a lower co-pay of this medication but that in 2017, her one year of prescription coverage lapsed, and that the company would not renew her prescription assistance, so she was titrated off this medication she cannot afford it. She has been using good coping skills, is active in the community, and has many friends she keeps in touch with that keep her from becoming depressed. She has been using Ativan as an anxiolytic and states this works well since taking it 4 times a day Additional Comments: ROS: Constitutional: No fever, chills, sweats, fatigue or weakness Eyes: No diplopia, no changes in vision ENT: No sore throat, tinnitus, or trouble swallowing Respiratory: No shortness of breath, No dyspnea at rest or on exertion, no cough or sputum Cardiovascular: No chest pain, palpitations, or flutter Abdomen: No pain, No constipation, No diarrhea, No nausea, No vomiting Musculoskeletal: + L shoulder pain but minimal. No calf pain, No swelling Genitourinary : No dysuria or urinary frequency, No hematuria Neurologic: No numbness/tingling, no difficulty with ambulation, no sensory or motor deficits Psychiatric: No depression or anxiety symptoms Endocrine: No fatigue, No weight changes Integumentary: No itch, No rash Objective Vital Signs Date Time Temp Pulse Resp B/P Pulse Ox O2 Delivery O2 Flow Rate FiO2 08/09/16 07:51 36.9 58 16 119/73 91 Room Air 08/08/16 23:50 Room Air 08/08/16 23:04 36.9 56 16 124/70 94 Room Air 08/08/16 20:35 Room Air 08/08/16 15:55 36.7 52 16 122/74 95 Room Air 08/08/16 11:30 36.4 60 19 134/75 96 Room Air 08/08/16 09:07 56 111/72 Physical Exam Notes: General: awake, alert, no apparent distress Head: Normocephalic, atraumatic ENT: PERRL, EOMI, no pharyngeal exudate, mucous membranes moist Chest: Clear to auscultation, on room air, no adventitious breath sounds Cardiac: Regular rate and rhythm, no murmur, no JVD, normal peripheral pulses, good capillary refill Abdominal: NABS x 4 quadrants, soft, nontender to palpation, no rebound, guarding or tenderness Extremities: + Left shoulder in sling, no peripheral edema or erythema, calfs nontender to palpation Psych: Normal mood and affect Neuro: AAO x 3, strength intact bilaterally and related 5/5, no motor deficits, speech is clear, no peripheral sensory deficits Laboratory Results Last 24 Hours Test 08/08/16 08:43 08/09/16 04:44 Hepatitis C Antibody Screen NEG Assessment and Plan 71 y/o female with a history of HTN, hypothyroidism, anxiety, and GERD who presents s/p left total shoulder arthroplasty with Dr. Gallegos on 08/07 for medical management. S/p L total shoulder arthroplasty on 08/07 - POD #2, management per primary team HTN--stable -Continue Norvasc 7.5 mg PO qd Hypothyroidism -Continue Synthroid 25 g PO qd Anxiety/depression - ativan changed to scheduled for 8am, 4pm, qHS which is how she typically takes it, orn available. - Most recently was taking Trintellix 5 mg and stopped 2 weeks ago. See HPI for details. GERD -Continue Protonix 40 mg PO qd DVT ppx: Teds, Scds, CODE STATUS: FULL CODE Disposition: From home, Cm to assist with discharge planning/
[2016-08-09] MEDS ORDERED: PRT40 PO (08:12)
[2016-08-09] MEDS ORDERED: AMLO2.5T PO (08:12)
[2016-08-09] MEDS ORDERED: MULT-859 PO (08:12)
[2016-08-09] MEDS ORDERED: VORT1TAB PO (08:12)
[2016-08-09] MEDS ORDERED: B-COTAB18 PO (08:12)
[2016-08-09] MEDS ORDERED: DOXY100C76 PO (08:12)
[2016-08-09] MEDS ORDERED: LEVO25TA PO (08:12)
[2016-08-09] MEDS ORDERED: OXYSR10 PO (08:12)
[2016-08-09] MEDS ORDERED: PEDICHW34 PO (08:12)
[2016-08-09] MEDS ORDERED: ATV1 PO ×2 (08:12→08:21)
[2016-08-09] MEDS ORDERED: ASCO500C5 PO (08:12)
[2016-08-09] MEDS ORDERED: ACET-1138 PO (08:12)
[2016-08-09] MEDS ORDERED: BND25X PO (08:12)
[2016-08-09] MEDS ORDERED: RXC5 PO (08:12)
[2016-08-09 08:18] LABS: HEMATOCRIT 37.2 % (37-47); MEAN CELL VOLUME 85.3 fL (80-100); MEAN CORPUSCULAR HEMOGLOBIN 28.4 pg (25-34); MEAN CORPUSCULAR HGB CONC 33.3 g/dl (32-36); MEAN PLATELET VOLUME 9.2 fL (7.4-10.4); PLATELET COUNT 204 K/uL (130-400); RED BLOOD COUNT 4.36 M/uL (4.2-5.4); WHITE BLOOD COUNT 8.74 K/uL (4.8-10.8)
--- NOTE | 2016-08-09 08:18 | Discharge Instructions ---
Discharge Instructions Date of Service Aug 09, 2016. Admission Reason for Admission: Left Shoulder Degenerative Joint Disease Discharge Discharge Diagnosis / Problem: Left shoulder TSA Discharge Goals Goal(s): Improve function Activity Recommendations Activity Level: Assistance Required . Additional Information Patient informed of condition: Yes Advance Directives: Yes DNR: No Level of Care: Skilled Communicable Disease: No Prognosis: Improving Rosa Catheter: No Instructions / Follow-Up Instructions / Follow-Up ACTIVITY RECOMMENDATIONS: SELF CARE INSTRUCTIONS AFTER TOTAL SHOULDER ARTHROPLASTY A. You may do daily exercises as taught in physical therapy while in hospital. No lifting with the operative arm. Please schedule your outpatient physical therapy appointment to begin within 2-3 days after leaving the hospital. Specific restrictions will be written on your physical therapy prescription that is provided to you. B. You are to wear your sling/immobilizer at all times EXCEPT when performing your daily exercises, participating in physical therapy and for hygiene purposes. C. You may perform dry, daily dressing changes. Please keep your incision covered. You may shower 48 hours after surgery. Do not apply soap or any ointment/ lotions directly over incision. Do not soak incision in bath tub/swimming pool. D. You may use ice as needed to operative shoulder. SPECIAL CARE INSTRUCTIONS: MEDICATION INSTRUCTIONS: *It is recommended you take Aspirin 325mg daily for four weeks post-op. VERY IMPORTANT TO READ AND REVIEW A. There are a few signs you need to watch for after you are home. Call [facility] at [phone] if you experience any of the followin. Increased severe shoulder pain. Some pain is expected especially when you exercise. 2. Increased swelling in you shoulder or arm; pain or swelling in either upper extremity. 3. Any fluid drainage from the incision. 4. Shortness of breath or chest pain. B. Please call [facility] at [phone] if you have any questions or concerns about your operation or recovery. C. Call your physician if: 1. Temperature is greater than 101 degrees (F). 2. Pain is not relieved by prescribed pain medications. 3. Increase drainage or redness from incision. 4. Unanswered questions or concerns. FOLLOW UP VISIT: Please call [facility] at [phone] to schedule a follow up appointment with Dr. Gallegos or his PA in 12-14 days from your surgery date. Please see printed home exercise sheet for self exercises, PT Rx for therapist. Current Hospital Diet Patient's current hospital diet: Regular Diet Discharge Diet Recommended Diet: Regular Diet Procedures Procedures Performed: Left Total Shoulder Arthroplasty Cemented and Biceps Tenodesis Pending Studies Studies pending at discharge: no Laboratory Results Hemoglobin A1c Test 07/19/16 15:36 Range/Units Estimated Average Glucose 105 mg/dl Hemoglobin A1c 5.3 4.5-5.6 % Medical Emergencies . Who to Call and When: Medical Emergencies: If at any time you feel your situation is an emergency, please call 911 immediately. . Non-Emergent Contact Non-Emergency issues call your: Primary Care Provider . . "Provider Documentation" section prepared by Sawyer Escalona. Core Measure Problem Core Measures: VTE VTE Core Measures Date of VTE Diagnosis: Aug 09, 2016 Time of VTE Diagnosis: 08:17 Reason no anticoag overlap I/P: Treatment provided - N/A Reason no anticoag overlap @DC: Treatment provided - N/A [place] Drug Monitoring Program Search Results: patient reviewed within database, no issues identified
[2016-08-09 08:46] LABS: BUN/CREATININE RATIO 30.2 (10-20); CALCIUM 8.7 mg/dl (8.5-10.1); CREATININE 0.64 mg/dl (0.60-1.20); POTASSIUM 3.7 mmol/L (3.5-5.1)
[2016-08-09] MEDS: LORAZEPAM 1 MG TAB PO SCH ×2 (08:57→15:43)
[2016-08-09] MEDS: VITAMIN B COMPLEX TAB PO SCH (08:58)
[2016-08-09] MEDS: PANTOprazole SOD 40 MG TAB PO SCH (08:58)
[2016-08-09] MEDS: AMLODIPINE BESYLATE 5 MG TAB PO SCH (08:58)
[2016-08-09] MEDS: OXYCODONE HCL 10 MG TABCR (OXYCONTIN) PO SCH (09:00)
[2016-08-09 11:13] VITALS: BP 119/73; PULSE 58; TEMP 36.9; O2SAT 91
[2016-08-09 14:59] VITALS: BP 167/83; PULSE 67; TEMP 36.8; O2SAT 93
--- NOTE | 2016-08-23 13:30 | DISCHARGE SUMMARY ---
HISTORY OF PRESENT ILLNESS: A 71-year-old female patient of Dr. Gallegos'bro complaining of chronic left shoulder pain, long-standing, progressively getting worse. The patient was diagnosed with end-stage osteoarthritis, failed conservative treatment and she elected to proceed with a left total shoulder arthroplasty. PAST MEDICAL HISTORY: Hypertension, irregular heartbeat, anxiety, Meniere's disease, hypothyroidism, osteoarthritis, neck problems, acid reflux, obesity. 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 POSTOPERATIVE COURSE: The patient underwent a left total shoulder arthroplasty on 08/07/2016. She was followed closely with medical consultation, pain control and physical therapy. She did very well postoperatively. She did have some issues with extreme pain. Her Ativan was adjusted by medical consultation and she was stable on discharge. The patient was discharged to [facility] on postoperative day #2. PHYSICAL EXAMINATION: On discharge left shoulder incision was clean, dry and intact. Eda were intact. Skin edges were approximated well. There was no redness or drainage. Neurologically and neurovascularly she was intact in her left upper extremity. 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 PLAN: The patient was transferred to [facility] upon discharge from [facility]. She will continue her limited physical therapy as instructed as well as pain control. She will resume her preadmission medications and follow up with her family physician as scheduled.
== END 2016-08-09 16:17 | DRG 483 ==
LOC: ENRESERVTM → ENRESERVDT → C.ACU 07:39 → C.MSN 08:37
PROVIDERS: ADMIT Orthopaedic Surgery Sports Medicine; ATTEND Orthopaedic Surgery Sports Medicine
PROC: 0RRK0JZ Replacement of Left Shoulder Joint with Synthetic Substitute, Open Approach (ICD-10-PCS; principal; 2016-08-07 10:00)
DX: M19.012 Primary osteoarthritis, left shoulder (principal); K21.9 Gastro-esophageal reflux disease without esophagitis; E66.9 Obesity, unspecified; E03.9 Hypothyroidism, unspecified; I10 Essential (primary) hypertension; F41.9 Anxiety disorder, unspecified; H81.09 Meniere's disease, unspecified ear; Z90.49 Acquired absence of other specified parts of digestive tract; Z98.2 Presence of cerebrospinal fluid drainage device; Z79.899 Other long term (current) drug therapy; Z88.2 Allergy status to sulfonamides; Z88.0 Allergy status to penicillin; Z88.8 Allergy status to other drugs, medicaments and biological substances; Z87.442 Personal history of urinary calculi; Z82.49 Family history of ischemic heart disease and other diseases of the circulatory system; Z82.3 Family history of stroke; Z91.041 Radiographic dye allergy status; M75.112 Incomplete rotator cuff tear or rupture of left shoulder, not specified as traumatic; M65.812 Other synovitis and tenosynovitis, left shoulder